=== PATIENT | male | born 1975 | race Caucasian/White ===

== ENCOUNTER 2017-12-25 13:06 | Emergency (ER) | payer OTHER ==
[~2017-12-25] VITALS: Ht 175.3 cm; Wt 87.3 kg
[2017-12-25 13:16] VITALS: BP 141/90; PULSE 92; TEMP 98.4
[2017-12-25] MEDS ORDERED: COLCRYS0.6 MG PO (13:41)
== END 2017-12-25 15:40 | disposition home or self-care (01) ==
LOC: COL.ER 13:06
DX: M10.9 Gout, unspecified (principal); Z90.89 Acquired absence of other organs
CPT/HCPCS: J1885